=== PATIENT | male | born 1990 | race Caucasian/White ===

== ENCOUNTER 2019-10-06 14:10 | Emergency (ER) | payer OTHER ==
[~2019-10-06] VITALS: Ht 172.7 cm; Wt 73.6 kg
[2019-10-06] MEDS ORDERED: IBUP-1022 PO (14:16)
--- NOTE | 2019-10-06 14:54 | REP ---
RIGHT SHOULDER, THREE VIEWS: There is no evidence of an acute fracture, dislocation or intrinsic bone disease. IMPRESSION: No fracture or dislocation. Unreviewed
[2019-10-06] MEDS ORDERED: ACETAMINOPHEN 500 MG TAB PO ONE (16:00)
--- NOTE | 2019-10-06 16:32 | REP ---
STERNUM: Two views of the sternum are performed. No fracture, dislocation, or intrinsic bone disease is visualized. IMPRESSION: No evidence of a sternal fracture. Unreviewed
[2019-10-06 17:07] VITALS: BP 118/76
== END 2019-10-06 17:08 | disposition home or self-care (01) ==
LOC: M ED 14:10
DX: S46.011A Strain of muscle(s) and tendon(s) of the rotator cuff of right shoulder, initial encounter (principal); V47.5XXA Car driver injured in collision with fixed or stationary object in traffic accident, initial encounter; F17.220 Nicotine dependence, chewing tobacco, uncomplicated; Y93.9 Activity, unspecified